=== PATIENT | female | born 1980 | race Caucasian/White ===

== ENCOUNTER 2021-01-27 13:42 | Outpatient (REF) | payer BC, SELFPAY ==
--- NOTE | 2021-01-27 13:00 | PAPFT_PTH ---
PATIENT: Megan Sood LOC: [facility] U#:[id number] AGE/SX: 40/F ROOM: RE01/27/[address]: LORA Deluca : 1980 BED: DIS: 01/27/2021 SPEC #: [id number] RECD: 01/27/21 18:41 STATUS: SALVATORE REQ #: [id number] HIRAM: 01/27/21 13:[address]: Aleta Churchill DEPT: [facility] Cytology RECD BY: Winnie Riddle ENTERED: 01/27/21 18:42 SP TYPE: PAPFT OTHR DR: Scott Moses Tissues: 1 - CX/ENDOCX FOR PAP SMEARS Procedures: PAP THIN PREP/[facility] Screening HPV DNA PROBE Comments: [id number]
== END 2021-01-27 13:43 | disposition home or self-care (01) ==
LOC: LBN 13:42
PROVIDERS: PCP Neuromusculoskeletal Medicine & OMM; Visit Provider Nurse Practitioner Family
DX: Z12.4 Encounter for screening for malignant neoplasm of cervix (principal); Z11.51 Encounter for screening for human papillomavirus (HPV)
CPT/HCPCS: 88142; 87624

== ENCOUNTER 2021-03-17 01:59 | Outpatient (CLI) | payer BC, SELFPAY ==
--- NOTE | 2021-03-17 06:45 | DI.MAMMO_ITS ---
Exam(s) MAMMO SCREENING EXAM: MAMMO SCREENING CLINICAL HISTORY: screening,Z12.39, BASELINE. TECHNIQUE: Bilateral full field digital CC and MLO mammographic images were obtained with 3D tomosyn thesis and utilizing computer aided detection (CAD). COMPARISON: Baseline mammogram on this 40-year-old patient FINDINGS: There are no CAD designations. There are no spiculated masses nor malignant appearing microcalcification groups. There is no significant architectural distortion nor skin thickening-retraction. IMPRESSION: No radiographic evidence of malignancy. BI-RADS Category 1 - Negative Breast Density - Category B - Scattered areas of fibroglandular density Breast density Category C or D implies that the patient has dense breast tissue. Dense breast tissue can make it harder to find cancer on a mammogram. Dense breast tissue is also associated with an incr eased risk of breast cancer. This information about the result of the mammogram report was provided to the patient to raise their awareness. Use this report when you speak with the patient about their risks for breast cancer, which includes their family history. At that time, you may recommend additional screening tests (Ultrasoun d or MRI) as these tests may add significant information. A negative radiographic report should not delay biopsy if a dominant or clinically suspicious mass is present. Up to ten percent of cancers are not identified on mammography. A negative report may reinforce clinical impression. Adenosis and dense breasts may obscure an underlying neoplasm. False positive reports average 6 to 10%. Patient will receive a letter notifying them of these results.
--- NOTE | 2021-03-17 06:45 | DI.US_ITS ---
Exam(s) US PELVIS TRANSVAGINAL EXAM: US PELVIS TRANSVAGINAL CLINICAL HISTORY: Heavy periods, dysmenorrhea, Hx Fibroid,N92.0 TECHNIQUE: Ultrasound of the pelvis was performed both transabdominal and transvaginal. COMPARISON: US OB US 2-3 TRIMESTER TRANSABD*P from 09/05/2010 US [facility] OB ULTRASOUND from 10/27/2016 FINDINGS: UTERUS: Uterus is retroverted Measures 8.8 cm length x 5.8 cm AP x 6.6 cm wide. There are no uterine fibroids. Apparently prior fibroid was moved during prior . Endometrial thickness measures 17 mm. There is no fluid in the endometrial canal. CERVIX: There are no obvious nabothian cysts. RIGHT OVARY: Measures 4.1 x 2.2 x 3.6 cm Contains 2 adjacent cysts, larger of the 2 measuring 2.2 x 1.6 x 2 1 cm. Both cysts exhibits some mu ral nodular densities. Some fluid is seen in the right adnexa adjacent to the ovary LEFT OVARY: Measures 1.9 x 3.1 x 1.8 cm Contains sub cm follicular cysts. CUL-DE-SAC: Small amount of fluid noted Appearance of the kidneys may reflect bilateral medullary sponge kidney. Cortical thinning is noted bilaterally. Incidentally noted is a small 8 x 8 millimeter cyst in left kidney. IMPRESSION: 1. Retroverted nongravid uterus. Endometrial thickness is 17 millimeters. No fluid in the endometri al canal. No fibroids evident 2. Two cysts in the right ovary measuring up to 2.2 cm. Both cysts contain some mural nodules requir e follow-up transvaginal study in few months. There is also a small amount of fluid in right adnexa adjacent to the ovary. Smaller follicular cysts are noted in the opposite-left ovary. 3. Appearance of the kidneys may reflect the presence of medullary sponge kidney. DATA REPOSITORY:
== END 2021-03-17 02:19 ==
PROVIDERS: PCP Neuromusculoskeletal Medicine & OMM; Visit Provider Nurse Practitioner Family
DX: Z12.31 Encounter for screening mammogram for malignant neoplasm of breast (principal); N92.0 Excessive and frequent menstruation with regular cycle; N85.4 Malposition of uterus; N83.291 Other ovarian cyst, right side; N83.02 Follicular cyst of left ovary
CPT/HCPCS: 77063; 77067; 76830; 76856

== ENCOUNTER 2022-03-23 02:13 | Outpatient (CLI) | payer BC, SELFPAY ==
--- NOTE | 2022-03-23 12:47 | DI.MAMMO_ITS ---
Exam(s) MAMMO SCREENING EXAM: MAMMO SCREENING CLINICAL HISTORY: screening TECHNIQUE: Bilateral full field digital CC and MLO mammographic images were obtained with 3D tomosyn thesis and utilizing computer aided detection (CAD). COMPARISON: Available for comparison. FINDINGS: Masses/Architectural Distortion: None seen. Microcalcifications: No suspicious pleomorphic-type are seen. Skin Thickening/Nipple Retraction: None. IMPRESSION: 1. No significant interval change with no specific features of malignancy noted. 2. Unless there is more urgent need, screening mammography is recommended, as per [employer] guidelines. BI-RADS Category 1 - Negative Breast Density - Category B - Scattered areas of fibroglandular density Breast density category C or D implies that the patient has dense breast tissue. Dense breast tissue is very common and is not abnormal but dense breast tissue can make it harder to find cancer on a ma mmogram. Also, dense breast tissue may increase their breast cancer risk. This information about the result of the mammogram report was provided to the patient to raise their awareness. Use this report when you speak with the patient about their risks for breast cancer, which includes their family hist ory. At that time, you may recommend for more screening tests (Ultrasound or MRI) as they might be us eful based on their risk. A negative radiographic report should not delay biopsy if a dominant or clinically suspicious mass is present. Up to ten percent of cancers are not identified on mammography. A negative report may reinforce clinical impression. Adenosis and dense breasts may obscure an underlying neoplasm. False positive reports average 6 to 10%. Patient will receive a letter notifying them of these results.
== END 2022-03-23 02:33 ==
LOC: DI 02:14
PROVIDERS: PCP Neuromusculoskeletal Medicine & OMM; Visit Provider Obstetrics & Gynecology
DX: Z12.31 Encounter for screening mammogram for malignant neoplasm of breast (principal)
CPT/HCPCS: 77063; 77067

== ENCOUNTER 2023-04-15 11:47 | Outpatient (REF) | payer BC, SELFPAY ==
--- NOTE | 2023-04-15 10:20 | PAPFT_PTH ---
PATIENT: Megan Sood LOC: [facility] U#:[id number] AGE/SX: 42/F ROOM: RE04/15/[address]: Radha Bustillo DO : 1980 BED: DIS: 04/15/2023 SPEC #: [id number] RECD: 04/15/23 12:48 STATUS: SALVATORE REQ #: [id number] HIRAM: 04/15/23 10:[address]: Radha Bustillo DEPT: [facility] Cytology RECD BY: Winnie Riddle ENTERED: 04/15/23 12:48 SP TYPE: PAPFT OTHR DR: Scott Moses Tissues: 1 - CX/ENDOCX FOR PAP SMEARS Procedures: PAP THIN PREP/[facility] Screening HPV DNA PROBE Comments: [id number]
== END 2023-04-15 11:48 | disposition home or self-care (01) ==
LOC: LBN 11:47
PROVIDERS: PCP Neuromusculoskeletal Medicine & OMM; Visit Provider Obstetrics & Gynecology
DX: Z12.4 Encounter for screening for malignant neoplasm of cervix (principal)
CPT/HCPCS: 88142; 87624

== ENCOUNTER → 2023-08-18 00:59 | Outpatient (CLI) | payer BC, SELFPAY ==
--- NOTE | 2023-08-18 07:45 | DI.US_ITS ---
Exam(s) US PELVIS TRANSVAGINAL EXAM: US PELVIS TRANSVAGINAL CLINICAL HISTORY: Check right ovary,ovarian cyst,n83.209 TECHNIQUE: Transabdominal and transvaginal imaging was performed using standard protocol. COMPARISON: US US PELVIS TRANSVAGINAL from 06/09/2021 FINDINGS: The bladder is unremarkable. UTERUS: Retroverted. 9.8 x 5.4 x 6.8 cm Mildly prominent pelvic veins again noted. Endometrium: 16-17 millimeters. Mm Myometrium: Unremarkable. Cervix: Unremarkable. OVARIES: Right: Cyst or mass: Single simple cyst measuring 2.6 x 2.5 x 2.9 cm. No mural nodularity or septati on. No debris seen on today's exam. Left: Cyst or mass: None. Small follicles. DOPPLER: Color: Symmetric and uniform flow to both ovaries. No hyperemia. CUL-DE-SAC: Free fluid: None. IMPRESSION: 1. Thickened endometrial stripe measuring 16-17 millimeters. 2. Right ovarian cyst 2.9 cm in maximal dimension. DATA REPOSITORY:
--- NOTE | 2023-08-18 15:21 | DI.MAMMO_ITS ---
Exam(s) MAMMO SCREENING EXAM: MAMMO SCREENING CLINICAL HISTORY: screening,z12.39 TECHNIQUE: Mammograms were interpreted according to the usual protocol including computer analysis w BBE CAD system, tomosynthesis and C-view imaging. COMPARISON: 2021 and 2022 FINDINGS: The breasts are composed of scattered fibroglandular densities, Breast Density category B. No suspicious masses or suspicious microcalcifications are seen. No skin thickening or abnormal axillary lymph nodes are seen. There has been no significant change from prior exams. IMPRESSION: BI-RADS Category 1, Negative mammogram Yearly screening mammography is recommended. Breast Density - Category B, scattered fibroglandular densities. A negative radiographic report should not delay biopsy if a dominant or clinically suspicious mass is present. Up to ten percent of cancers are not identified on mammography. A negative report may reinforce clinical impression. Adenosis and dense breasts may obscure an underlying neoplasm. False positive reports average 6 to 10%. Patient will receive a letter notifying them of these results.
== END ==
PROVIDERS: PCP Neuromusculoskeletal Medicine & OMM; Visit Provider Obstetrics & Gynecology
DX: N83.209 Unspecified ovarian cyst, unspecified side (principal); Z12.39 Encounter for other screening for malignant neoplasm of breast
CPT/HCPCS: 77063; 77067; 76830; 76856

== ENCOUNTER 2024-08-21 01:17 | Outpatient (CLI) | payer BC, SELFPAY ==
--- NOTE | 2024-08-21 08:45 | DI.MAMMO_ITS ---
Exam(s) MAMMO SCREENING EXAM: MAMMO SCREENING CLINICAL HISTORY: screening TECHNIQUE: Mammograms were interpreted according to the usual protocol including computer analysis with CAD system, tomosynthesis and C-view imaging. COMPARISON: 2021 to 2023 FINDINGS: The breasts are composed of scattered fibroglandular densities, Breast Density category B. No suspicious masses or suspicious microcalcifications are seen. No skin thickening or abnormal axillary lymph nodes are seen. There has been no significant change from prior exams. IMPRESSION: BI-RADS Category 1, Negative mammogram Yearly screening mammography is recommended. Breast Density - Category B - There are scattered areas of fibroglandular density. Breast density Category C or D implies that the patient has dense breast tissue. Dense breast tissue can make it harder to find cancer on a mammogram. Dense breast tissue is also associated with an increased risk of breast cancer. This information about the result of the mammogram report was provided to the patient to raise their awareness. Use this report when you speak with the patient about their risks for breast cancer, which includes their family history. At that time, you may recommend additional screening tests (Ultrasound or MRI) as these tests may add significant information. A negative radiographic report should not delay biopsy if a dominant or clinically suspicious mass is present. Up to ten percent of cancers are not identified on mammography. A negative report may reinforce clinical impression. Adenosis and dense breasts may obscure an underlying neoplasm. False positive reports average 6 to 10%. Patient will receive a letter notifying them of these results.
== END 2024-08-21 01:37 ==
PROVIDERS: PCP Neuromusculoskeletal Medicine & OMM; Visit Provider Obstetrics & Gynecology
DX: Z12.31 Encounter for screening mammogram for malignant neoplasm of breast (principal); R92.323 Mammographic fibroglandular density, bilateral breasts
CPT/HCPCS: 77063; 77067